=== PATIENT | female | born 1970 | race African-American/Black ===

== ENCOUNTER → 2018-01-21 | Outpatient (CLI) | payer OTHER ==
--- NOTE | 2018-01-21 09:14 | RADIOLOGY REPORT (SQ) ---
EXAM DESCRIPTION: U/S NON OB PEL TV W/DOPPLER COMPLETED DATE/TIME: 01/21/2018 7:56 am REASON FOR STUDY: VAGINAL BLEEDING (N93.9) N93.9 ABNORMAL UTERINE AND VAGINAL BLEEDING, UNSPECIFIED COMPARISON: None. TECHNIQUE: Dynamic and static grayscale images acquired of the pelvis via transvaginal approach and recorded on PACS. Additional selected color Doppler and spectral images recorded. LIMITATIONS: None. FINDINGS: UTERUS: Post hysterectomy. ENDOMETRIAL STRIPE: Post hysterectomy. CERVIX: Post hysterectomy. RIGHT OVARY: No abnormal masses. Right ovary 3.4 x 2.2 x 2.2 cm in size RIGHT OVARY DOPPLER: Normal arterial vascular flow without evidence for torsion. LEFT OVARY: Left ovary measures 4.5 x 3.9 x 3.7 cm in size. Left ovary complex cyst 2.9 cm in diamet er, with low level internal echoes. There is a moderate amount of left adnexal free fluid with low l evel internal echoes. This could represent hemorrhage. Adnexal fluid pocket measures about 7 x 3 cm in size. LEFT OVARY DOPPLER: Normal arterial vascular flow without evidence for torsion. FREE FLUID: Moderate left adnexal free fluid with low level internal echoes, could represent hemorrha ge or blood clot. No right adnexal or pelvic cul-de-sac fluid. . OTHER: Results called to and discussed with Yuli BYERS. IMPRESSION: Post hysterectomy. Unremarkable right ovary. Left ovary normal in size with normal color flow. There is a complex cyst or cyst remnant 2.9 cm in size along the left ovary, with moderate left adnexal free fluid. TECHNICAL DOCUMENTATION: JOB ID: [id number] 1946 [employer]- All Rights Reserved Reading location - IP/workstation name: ON LICENSE OF [facility]
== END ==
LOC: RAD 07:12
PROVIDERS: ATTEND Physician Assistant
DX: N93.9 Abnormal uterine and vaginal bleeding, unspecified (principal); N83.202 Unspecified ovarian cyst, left side; Z90.710 Acquired absence of both cervix and uterus
CPT/HCPCS: 76830; 93976

== ENCOUNTER → 2018-01-28 | Outpatient (CLI) | payer OTHER ==
--- NOTE | 2018-01-28 14:03 | RADIOLOGY REPORT (SQ) ---
EXAM DESCRIPTION: MRI PELVIS COMBO COMPLETED DATE/TIME: 01/28/2018 1:47 pm REASON FOR STUDY: POSTMENOPAUSAL BLEEDING N95.0 POSTMENOPAUSAL BLEEDING COMPARISON: None. TECHNIQUE: Multiplanar multisequence imaging performed without and with contrast including axial, sa gittal and coronal T2, axial T, axial gradient fat sat T1, axial, sagittal and coronal fat sat T2 pos t contrast. CONTRAST TYPE AND DOSE: 20 mL Prohance. RENAL FUNCTION: None required. The patient is less than 50 years old. LIMITATIONS: None. FINDINGS: BLADDER AND URETHRA: Normal. PELVIC SOFT TISSUES: See below. UTERUS: Surgically absent. RIGHT OVARY: Normal size. No masses. LEFT OVARY: 1.8 cm cyst with a defect in the posterior wall series 7, image 23. FREE FLUID: Moderate free fluid intermediate T1 and T2 signal. PELVIC SKELETAL STRUCTURES: No abnormal marrow signal. EXTRA PELVIS SOFT TISSUES: No masses. OTHER: No other significant finding. IMPRESSION: Proteinaceous free fluid secondary to ruptured left ovarian cyst. TECHNICAL DOCUMENTATION: JOB ID: [id number] [employer] All Rights Reserved Reading location - IP/workstation name: [facility]
== END ==
LOC: RAD 12:34
PROVIDERS: ATTEND Physician Assistant
DX: N95.0 Postmenopausal bleeding (principal); N83.202 Unspecified ovarian cyst, left side
CPT/HCPCS: 72197; A9576

== ENCOUNTER → 2018-02-25 | Outpatient (CLI) | payer OTHER ==
--- NOTE | 2018-02-25 15:30 | RADIOLOGY REPORT (SQ) ---
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 Patient drank ora l contrast. Images reviewed with soft tissue and bone windows. Reconstructed coronal and sagittal MPR images rev iewed. All images stored on PACS. All CT scanners at this facility use dose modulation, iterative reconstruction, and/or weight based d osing when appropriate to reduce radiation dose to as low as reasonably achievable (ALARA). [facility]: Dose Right [facility]: CareDose [facility]: Dose Right [facility]: Teradose 4D [facility]: [employer] RADIATION DOSE: CT Rad equipment meets quality standard of care and radiation dose reduction techniq ues were employed. CTDIvol: 12.6 - 14.4 mGy. DLP: 1414 mGy-cm. mGy. LIMITATIONS: None. FINDINGS: Patient drank oral contrast. Oral contrast is seen in distal small bowel and colon down t o rectosigmoid. There is no pooling of oral contrast in the pelvic cul-de-sac fluid collection. A 7 x 3 cm fluid collection is present in the pelvic cul-de-sac, which correlates with proteinaceous fluid seen on the MRI 01/28/2018 and cul-de-sac fluid on pelvic endovaginal ultrasound 01/21/2018. The left ovary is position between the sigmoid colon medially, and the left external iliac artery and vein laterally. Left ovary measures 3.5 x 2.2 cm size. The cul-de-sac fluid collection abuts the p osterior aspect of the left ovary. It is possible that this fluid collection could represent a hydro salpinx, or a fluid collection related to chronic diverticular inflammation. Fluid from a ruptured o varian cyst is considered unlikely given that this has been present on imaging back to 01/21/2018 ultr asound. Right ovary measures 2.5 x 1.8 cm in size on axial image 30. No adjacent fluid collections. Patient is post hysterectomy. There is a small amount of air in the vaginal cuff, which is nonspecif ic. Colovaginal fistula could not entirely be excluded. No CT evidence of bowel obstruction. Sigmoid colon diverticulosis Bilateral SI joint sclerosis. Lower lumbar degenerative disc changes at L5-S1. Bilateral hip joints unremarkable. IMPRESSION: Persistent fluid collection in the left pelvis along the dorsal aspect of the left ovary and adjacent sigmoid colon with multiple diverticuli. This fluid collection is similar compared to MRI 01/28/2018 and pelvic ultrasound 01/21/2018. Question hydrosalpinx versus loculated cul-de-sac flui d. Abscess could not entirely be excluded. Small amount of air in the vagina. Colovaginal fistula could not entirely be excluded. Patient drank oral contrast. There is no leakage of oral contrast into the left pelvic cul-de-sac fl uid collection. TECHNICAL DOCUMENTATION: JOB ID: [id number] Quality ID # [id number]: Final reports with documentation of one or more dose reduction techniques (e.g., Au tomated exposure control, adjustment of the mA and/or kV according to patient size, use of iterative reconstruction technique) 2010 [employer]- All Rights Reserved Reading location - IP/workstation name: [facility]-ON LICENSE OF [facility]-RR2
== END ==
LOC: RAD 12:35
PROVIDERS: ATTEND Specialist
DX: K57.30 Diverticulosis of large intestine without perforation or abscess without bleeding (principal); N82.3 Fistula of vagina to large intestine
CPT/HCPCS: 72194

== ENCOUNTER → 2018-06-20 | Outpatient (CLI) | payer OTHER ==
--- NOTE | 2018-06-20 10:59 | RADIOLOGY REPORT (SQ) ---
EXAM DESCRIPTION: FOOT BILATERAL 3 VIEWS COMPLETED DATE/TIME: 06/20/2018 10:48 am REASON FOR STUDY: PAIN IN RT FOOT/LT FOOT COMPARISON: None. FINDINGS: Three views right foot: Normal bone density. No bone, joint or soft tissue abnormality a ppreciated. No calcaneal pathology. Three views left foot: Normal bone density. No bone, joint or soft tissue abnormality appreciated. No calcaneal pathology. IMPRESSION: Normal bilateral foot radiographs. TECHNICAL DOCUMENTATION: JOB ID: [id number] Reading location - IP/workstation name: [email or web address]
--- NOTE | 2018-06-20 10:59 | RADIOLOGY REPORT (SQ) ---
EXAM DESCRIPTION: KNEE LEFT 2 VIEWS COMPLETED DATE/TIME: 06/20/2018 10:48 am REASON FOR STUDY: PAIN IN LT FOOT,RT FOOT, LT KNEE M79.671 PAIN IN RIGHT FOOT M79.672 PAIN IN LEFT FOOT M25.562 PAIN IN LEFT KNEE COMPARISON: None. NUMBER OF VIEWS: Two views. TECHNIQUE: AP and lateral radiographic images acquired of the left knee. LIMITATIONS: None. FINDINGS: MINERALIZATION: Normal. BONES: No acute fracture or dislocation. No worrisome bone lesions. JOINT: No effusion. SOFT TISSUES: No soft tissue swelling. No radio-opaque foreign body. OTHER: No other significant finding. IMPRESSION: NEGATIVE STUDY OF THE LEFT KNEE. NO RADIOGRAPHIC EVIDENCE OF ACUTE INJURY. TECHNICAL DOCUMENTATION: JOB ID: [id number] [employer]- All Rights Reserved Reading location - IP/workstation name: [email or web address]
== END ==
LOC: OD 10:23
PROVIDERS: ATTEND Physician Assistant
DX: M79.671 Pain in right foot (principal); M79.672 Pain in left foot; M25.562 Pain in left knee

== ENCOUNTER → 2018-12-19 | Outpatient (CLI) | payer OTHER ==
[2018-12-19 08:48] LABS: CHOLESTEROL 226.86 mg/dL (0-200); TRIGLYCERIDES 71 mg/dL (<150)
[2018-12-19 08:59] LABS: DIRECT LDL 116 mg/dL (<100)
== END ==
LOC: LAB 08:01
PROVIDERS: ATTEND Internal Medicine Cardiovascular Disease
DX: I10 Essential (primary) hypertension (principal); R00.2 Palpitations
CPT/HCPCS: 36415; 80061

== ENCOUNTER → 2019-01-16 | Outpatient (CLI) | payer OTHER ==
[2019-01-16 12:10] LABS: ANION GAP 11 (5-19); BLOOD UREA NITROGEN 9 mg/dL (7-20); CARBON DIOXIDE 30 mmol/L (22-30); CHLORIDE 99 mmol/L (98-107); GLUCOSE 95 mg/dL (75-110); POTASSIUM 3.7 mmol/L (3.6-5.0); SODIUM 140.1 mmol/L (137-145)
== END ==
LOC: LAB 11:35
PROVIDERS: ATTEND Physician Assistant
DX: I10 Essential (primary) hypertension (principal); Z79.899 Other long term (current) drug therapy
CPT/HCPCS: 36415; 80048

== ENCOUNTER → 2019-04-13 | Outpatient (CLI) | payer OTHER ==
[2019-04-13 12:16] LABS: ANION GAP 13 (5-19); BLOOD UREA NITROGEN 7 mg/dL (7-20); CALCIUM 9.7 mg/dL (8.4-10.2); CARBON DIOXIDE 24 mmol/L (22-30); CHLORIDE 103 mmol/L (98-107); GLUCOSE 92 mg/dL (75-110); POTASSIUM 3.9 mmol/L (3.6-5.0); SODIUM 140.3 mmol/L (137-145)
== END ==
LOC: OD 11:16
PROVIDERS: ATTEND Physician Assistant
DX: I10 Essential (primary) hypertension (principal); Z79.899 Other long term (current) drug therapy
CPT/HCPCS: 36415; 80048

== ENCOUNTER → 2019-06-16 | Outpatient (CLI) | payer OTHER ==
[2019-06-16 11:20] LABS: ALANINE AMINOTRANSFERASE 28 U/L (9-52); ALBUMIN 4.6 g/dL (3.5-5.0); ALKALINE PHOSPHATASE 60 U/L (38-126); ASPARTATE AMINO TRANSFERASE 26 U/L (14-36); BILIRUBIN,DIRECT 0.2 mg/dL (0.0-0.4); BILIRUBIN,TOTAL 1.6 mg/dL (0.2-1.3); CHOLESTEROL 141.63 mg/dL (0-200); TOTAL PROTEIN 8.1 g/dL (6.3-8.2); TRIGLYCERIDES 60 mg/dL (<150)
[2019-06-16 11:32] LABS: DIRECT LDL 57 mg/dL (<100)
== END ==
LOC: OD 10:16
PROVIDERS: ATTEND Physician Assistant
DX: E78.00 Pure hypercholesterolemia, unspecified (principal); Z79.899 Other long term (current) drug therapy
CPT/HCPCS: 36415; 80061; 80076

== ENCOUNTER → 2020-08-30 | Outpatient (CLI) | payer OTHER ==
[2020-08-30 09:06] LABS: ALBUMIN 4.7 g/dL (3.5-5.0); ALKALINE PHOSPHATASE 71 U/L (38-126); ANION GAP 12 (5-19); ASPARTATE AMINO TRANSFERASE 36 U/L (14-36); BILIRUBIN,DIRECT 0.4 mg/dL (0.0-0.4); BILIRUBIN,TOTAL 1.5 mg/dL (0.2-1.3); BLOOD UREA NITROGEN 9 mg/dL (7-20); CALCIUM 9.2 mg/dL (8.4-10.2); CARBON DIOXIDE 25 mmol/L (22-30); CHLORIDE 105 mmol/L (98-107); CHOLESTEROL 127.83 mg/dL (0-200); GLUCOSE 107 mg/dL (75-110); POTASSIUM 4.8 mmol/L (3.6-5.0); TOTAL PROTEIN 8.1 g/dL (6.3-8.2); TRIGLYCERIDES 105 mg/dL (<150)
[2020-08-30 09:17] LABS: DIRECT LDL 50 mg/dL (<100)
== END ==
LOC: OD 07:05
PROVIDERS: ATTEND Physician Assistant
DX: E78.00 Pure hypercholesterolemia, unspecified (principal); I10 Essential (primary) hypertension; Z79.899 Other long term (current) drug therapy
CPT/HCPCS: 36415; 80048; 80061; 80076